=== PATIENT | female | born 1935 | race Caucasian/White ===

== ENCOUNTER 2016-12-11 04:50 | Inpatient (IN) | payer MEDICARE, OTHER ==
[~2016-12-11] VITALS: Ht 167.6 cm; Wt 58.5 kg
--- NOTE | ~2016-12-11 | DS ---
Unit #: [id number] #: [id number] Patient: DANNY DANIELS [id number] [address] [address] [id number] I MR#: [id number] NAME: DANNY DANIELS. ROOM: 465 Age: 81 Sex: F Admission Date: 12/11/2016 : 1935 Discharge Date: Attending Physician: Leana Griffin M.D. Primary Care Physician: Jayden AlcazarRSarah DISCHARGE SUMMARY DISCHARGE DIAGNOSES 1. Acute cholecystitis. 2. Urinary retention, most likely postop pain related. 3. Obstructing stone in the distal common bile duct. 4. Systolic murmur. 5. Hypertension. 6. Chronic obstructive pulmonary disease. 7. Hypercalcemia. 8. Mild hypernatremia. 9. Acute kidney injury with likely chronic kidney disease stage 3. 10. Severe protein malnutrition. 11. Transaminitis, likely from common bile duct stone. CONSULTATION 1. Dr. Salomon. 2. Dr. Toledo. PROCEDURE 1. Patient had ERCP, sphincterotomy with balloon extraction of common bile duct stone and stenting. 2. On December 02, 2016, patient had laparoscopic cholecystectomy. LAB DATA Sodium 133, potassium 4.0, creatinine 1.8, AST 36, ALT 74, alkaline phos. 207, albumin 1.6, WBC 12.5, hemoglobin 8.5, platelets 171. Hemoglobin A1c 5.8. ALLERGIES Sulfa. DISCHARGE MEDICATIONS 1. Albuterol two puffs inhalation q.4 p.r.n. shortness of breath. 2. Flomax 0.4 mg p.o. daily. 3. Loratadine 10 mg p.o. daily. 4. Atorvastatin 80 daily. 5. Zetia 10 mg daily. 6. Verapamil ER 240 mg p.o. daily. 7. MiraLAX 17 g p.o. daily. 8. Oxycodone 5 mg, one to two tablets q.4 p.r.n. pain. 9. Synthroid 112 mcg p.o. daily. HOSPITALIZATION COURSE 81-year-old admitted because of abdominal pain. Unit #: [id number] #: [id number] Patient: DANNY DANIELS Acute cholecystitis with common bile duct stone. Patient was seen by Dr. Salomon. Patient had ERCP and stone extraction and stent placement. Later, patient had laparoscopic cholecystectomy. Currently, pain is better. She is tolerating diet okay. Had bowel movement. Urinary retention, likely from pain. She did receive Ruvalcaba catheter and Flomax. Currently voiding okay. Acute kidney injury, likely prerenal, less likely from obstruction and also she might have likely had chronic kidney disease. Patient received IV fluids. Creatinine is stable. Patient needs BMP in one week time and follow with PCP with results. Hypertension, mildly uncontrolled secondary to holding her medications. Continue with verapamil home medication. Systolic murmur. Patient needs outpatient followup with her PCP for that. Patient will be discharged home with home health. BNP in one week time. Follow with PCP with the results. Discharge time taken is 31 minutes. Discussed with the daughters. Dictated by... Iris Quintanilla/jesse TD: 12/15/2016 13:09 JOB #: [id number] DISCHARGE SUMMARY Page 1 of 1 X Leana Griffin MD X DISCHARGE SUMMARY
--- NOTE | ~2016-12-11 | HP ---
Unit #: [id number] #: [id number] Patient: DANNY DANIELS [id number] [facility] [address] [facility]. [place], [place] [address] [id number] I MR#: [id number] NAME: DANNY DANIELS. ROOM: 226 Age: 81 Sex: F Admission Date: 12/11/2016 : 1935 Attending Physician: James Liu M.D. Primary Care Physician: Brittany Avila A.P.R.N. HISTORY AND PHYSICAL HISTORY OF PRESENT ILLNESS The patient is an 81-year-old woman with a history significant for nausea, vomiting, abdominal pain that started approximately two days ago and symptoms continued to worsen. Severity of pain moderate. No exacerbating factors. Associated with generalized weakness. She was seen at [facility] where a CAT scan of the abdomen demonstrated a 6 mm obstructing stone in the distal common bile duct, gallbladder wall thickening suspicious for acute cholecystitis. The patient was transferred to [facility] for further evaluation and management. PAST MEDICAL HISTORY 1. Hypertension. 2. COPD. PAST SURGICAL HISTORY Bladder surgery and hysterectomy many years ago. SOCIAL HISTORY Quit smoking 12 years ago and does not drink alcohol. ALLERGIES Sulfa drugs. REVIEW OF SYSTEMS Positive for abdominal pain. Positive for nausea. Positive for generalized weakness. Positive for fatigue. The rest of a 12-point review of systems are negative. PHYSICAL EXAMINATION VITAL SIGNS: Temperature 98, heart rate 96, blood pressure 104/47, respirations 14. GENERAL: Elderly woman, looks fatigued. HEENT: Normocephalic and atraumatic. Extraocular muscles intact. NECK: Trachea midline, supple. CARDIAC: Regular rate and rhythm. Systolic murmur. RESPIRATORY: Lungs clear to auscultation bilaterally. ABDOMEN: Acute tenderness in the right upper quadrant. Bowel sounds active, nondistended. EXTREMITIES: No edema. No cyanosis. CENTRAL NERVOUS SYSTEM: No acute focal deficits. DIAGNOSTIC STUDIES IMAGING: CAT scan done at outlying facility demonstrates a 6 mm Unit #: [id number] #: [id number] Patient: DANNY DANIELS obstructing stone in the distal common bile duct. Gallbladder wall thickening suspicious for acute cholecystitis. ASSESSMENT AND PLAN 1. Acute cholecystitis: Plan is to order empiric IV antibiotics. Order IV fluids for hydration. Keep patient NPO. Order surgery consultation. 2. Obstructing stone in the distal common bile duct: Plan is to order a gastroenterology consultation. 3. Systolic murmur: Plan is to order echocardiogram. Cardiology consultation. Dictated by Iris Grehsam TD: 12/11/2016 12:58 JOB #: [id number] HISTORY AND PHYSICAL Page 1 of 1 X X HISTORY AND PHYSICAL
--- NOTE | ~2016-12-11 | OR ---
Unit #: [id number] #: [id number] Patient: DANNY DANIELS [id number] [address] [place], [place] [address] [id number] I MR#: [id number] NAME: DANNY DANIELS. ROOM: [facility] Date of Procedure: 12/11/2016 Admission Date: 12/11/2016 Surgeon: Anthony Salomon M.D. : 1935 Attending Physician: Leana Griffin M.D. Primary Care Physician: Brittany Avila A.P.R.N. OPERATIVE REPORT JOB NOTE: CC: PRIMARY CARE PHYSICIAN. PROCEDURES PERFORMED 1. Esophagogastroduodenoscopy to distal duodenum. 2. Endoscopic retrograde cholangiopancreatography with sphincterotomy. 3. Endoscopic retrograde cholangiopancreatography with balloon extraction of common bile duct stone and 7 x 7 stenting. INDICATIONS FOR PROCEDURE An 81-year-old female, who presented with obstructive jaundice, possible ascending cholangitis with a bilirubin of 4.7 and white count of 43,000, right upper quadrant pain. CT scan shows a possible common bile duct stone, undergoing evaluation with EGD and ERCP. MEDICATIONS Monitored anesthesia. POSTOPERATIVE FINDINGS 1. EGD exam was within normal limits. 2. CBD dilated with a large stone. 3. Sphincterotomy performed at 12 o'clock position for about 6 to 7 mm. 4. Balloon extraction of the large stone was carried out successfully. 5. 7 x 7 CBD stent placed. 6. PD not injected. PLAN 1. LSA to perform laparoscopic cholecystectomy. 2. Follow up in the hospital. DESCRIPTION OF PROCEDURE The patient was explained of the procedure, risks, and benefits along with risks and benefits of anesthesia. Risk of pancreatitis was discussed in detail. She was brought to the endoscopy room and laid in the prone position. EGD was done first. Scope was passed down the mouth into esophagus, stomach, duodenum, and distal duodenum. Findings as described. No biopsies were taken. Gently, I pulled the scope out of the patient's mouth. At this time, we passed a side-viewing ERCP scope down the mouth into esophagus, stomach. Ampulla was visualized, was normal in appearance. After a few attempts, I was able to cannulate the bile duct electively. The ampulla was very tight suggesting stenosis. Common bile duct showed Unit #: [id number] #: [id number] Patient: DANNY DANIELS nice tapering to the ampulla suggestive of periampullary stenosis, also large filling defects seen in the upper part of the common bile duct. At this point, we will perform the sphincterotomy for about 6 to 7 mm at 12 o'clock position. Balloon extraction of the large stone was then carried out. Occlusion cholangiogram done showed no further filling defects. A 7 x 7 stent was then placed across the ampulla under fluoroscopic and endoscopic guidance. PD was not injected on purpose. The scope was then gently withdrawn. The stomach was decompressed. She tolerated the procedure well. No major complications seen. Dictated by... Iris Angel/rosie TD: 12/11/2016 14:49 JOB #: [id number] OPERATIVE REPORT Page 1 of 1 X Anthony Salomon MD X PROCEDURE OPERATIVE NOTE
--- NOTE | ~2016-12-11 | CR84 ---
[facility] RADIOLOGY TEXT RESULTS PATIENT: DANNY DANIELS LOCATION: [place] [address] : [birth year] UNIT #: [id number] AGE: [address]: Leana Griffin MD SEX: F ORDER DR: [id number] [facility] [address] [facility]. [place], [place] [address] [id number] I MR#: [id number] Acc #: [id number] NAME: DANNY DANIELS. : 1935 SEX: F STUDY DATE/TIME: 12/11/2016 12:35 UNIT: C2A ROOM: 226 STUDY DESCRIPTION: CR ERCP Biliary and Pancr SI Attending Physician: Leana Griffin M.D. Ordering Physician: Anthony Salomon M.D. Primary Care Physician: Brittany Avila A.P.R.N. MEDICAL IMAGING REPORT This report is preliminary unless electronic signature is present EXAM ERCP HISTORY Obstructive jaundice. Common bile duct stone. Fluoroscopy time: 2 minutes 7 seconds. FINDINGS Five fluoroscopic spot films were obtained during the ERCP procedure performed by the attending endoscopist. Injection of the common bile duct demonstrates extrahepatic biliary ductal dilatation, with the common bile duct measuring up to approximately 12 mm. Filling defect in the common bile duct corresponds to stone noted earlier on CT 12/11/2016. Balloon sweep of the extrahepatic ducts was performed, with stone removal from the common bile duct. The central intrahepatic ducts were only partly opacified with rpyqsnjrwn-wa-mqkw dilatation. Pancreatic duct was not injected. Biliary stent was placed at the conclusion of the procedure. IMPRESSION 1. Stone in the common bile duct corresponds to finding on CT earlier on 12/11/2016. 2. Mild intrahepatic biliary ductal dilatation and aqlp-ka-gufhedfn extrahepatic biliary ductal dilatation. 3. Biliary stent was placed at the conclusion of the procedure. 4. Pancreatic duct was not injected. Dictated by... Cale Sagastume M.D. THIS IS AN ELECTRONICALLY VERIFIED REPORT Cale Sagastume M.D. at 12/12/2016 10:31 PM [facility] RADIOLOGY TEXT RESULTS PATIENT: DANNY DANIELS LOCATION: [facility] 465-01 : 35 UNIT #: [id number] AGE: [address]: Leana Griffin MD SEX: F ORDER DR: FARRUKH/roseann TD: 12/12/2016 12:57 JOB #: [id number] MEDICAL IMAGING REPORT Page 1 of 1 COPY
--- NOTE | ~2016-12-11 | CO ---
Unit #: [id number] #: [id number] Patient: DANNY JETT [id number] [address] [place], [place] [address] [id number] I MR#: [id number] NAME: DANNY JETT. ROOM: [facility] Age: 81 Sex: F Admission Date: 12/11/2016 : 1935 Attending Physician: Leana Griffin M.D. Primary Care Physician: Brittany Avila A.P.R.N. Consultation Date: 12/11/2016 CONSULTATION REPORT REFERRING PHYSICIAN Dr. Damir Marie. REASON FOR CONSULTATION Obstructive jaundice common bile duct stone. HISTORY OF PRESENT ILLNESS Ms. Jett is an 81-year-old pleasant lady, who presented with nausea, vomiting, significant right upper quadrant pain. CT scan shows possible common bile duct stone, acute cholecystitis. Her LFTs suggest obstructive jaundice also. She has had some chills, but no fever. She has had generalized weakness. She has not had any similar symptoms in the past. PAST MEDICAL HISTORY Significant for COPD, hypertension. She is status post hysterectomy. SOCIAL HISTORY Nonsmoker, nonalcoholic. ALLERGIES Sulfa. REVIEW OF SYSTEMS Complete 10-point review of systems was done, which is unremarkable other than as mentioned above. PHYSICAL EXAMINATION VITAL SIGNS: Stable, temperature 98, pulse 96, respirations 14, and blood pressure of 104/47. HEENT: Pupils equal and reactive. Sclerae anicteric. Oral mucosa moist. NECK: No JVD. No lymphadenopathy. CHEST: A few scattered rhonchi. CARDIOVASCULAR: Regular rate and rhythm. No murmurs. GI: Abdomen is significantly tender in the right upper quadrant. Bowel sounds present. No organomegaly or ascites. EXTREMITIES: Without clubbing, cyanosis, or edema. NEUROLOGIC: Intact. SKIN: Warm and dry. DIAGNOSTIC STUDIES IMAGING STUDIES: CT scan done at [facility] shows a 6 mm stone blocking the distal common bile duct. Gallbladder was suspicious for acute cholecystitis. Unit #: [id number] #: [id number] Patient: DANNY JETT ASSESSMENT AND PLAN The patient with obstructive jaundice from common bile duct stones very significantly elevated white count suggest possible ascending cholangitis as well as acute cholecystitis based on CT scan findings. She will need an ERCP urgently. We will start on broad-spectrum antibiotics, IV fluids, and pain medications at the same time. Further recommendations to follow. Thank you, Dr. Marie, for this interesting consult. We will follow along. Dictated by... Iris Angel/rosie TD: 12/12/2016 12:39 JOB #: [id number] CONSULTATION REPORT Page 1 of 1 X Anthony Salomon MD X CONSULTATION REPORT
--- NOTE | ~2016-12-11 | OR ---
Unit #: [id number] #: [id number] Patient: DANNY DANIELS [id number] [address] [place], [place] [address] [id number] I MR#: [id number] NAME: DANNY DANIELS. ROOM: [facility] Date of Procedure: 12/12/2016 Admission Date: 12/11/2016 Surgeon: Pratik Vazquez M.D. : 1935 Attending Physician: Leana Griffin M.D. Primary Care Physician: Brittany Avila A.P.R.N. OPERATIVE REPORT PREOPERATIVE DIAGNOSIS Cholecystitis. POSTOPERATIVE DIAGNOSIS Cholecystitis. PROCEDURE PERFORMED Laparoscopic cholecystectomy. PASSPORT APPLICATION EXAMINER Tay Corona M.D. ANESTHESIA General anesthesia. ESTIMATED BLOOD LOSS 100 mL. IV FLUIDS 1 L crystalloid. COMPLICATIONS None. INDICATIONS The patient is an 81-year-old, who presents with acute cholecystitis. DESCRIPTION OF PROCEDURE The patient was taken to the operating theater and placed in supine position. General anesthesia was induced. The abdomen was prepped and draped. A 5-mm Optiview trocar was placed in the right upper quadrant without difficulty. The abdomen was insufflated to 15 mmHg with CO2. Under direct vision, I placed a subxiphoid 10 mm, right lateral 5 mm, umbilical 5 mm. General inspection of the abdomen revealed acute cholecystitis. The patient's gallbladder was retracted up over the liver. I dissected neck of the gallbladder and identified the cystic duct. Its junction with the gallbladder was confirmed. It was thus skeletonized, doubly hemoclipped, and divided. The cystic artery laid immediately posterior. This was skeletonized, doubly hemoclipped, and divided. The gallbladder was removed from gallbladder bed with Bovie electrocautery. I irrigated thoroughly with normal saline with good hemostasis. I placed a Se-Rizvi drain in the bed of the gallbladder, brought this out Unit #: [id number] #: [id number] Patient: DANNY DANIELS through the right 5 mm port sites. This was secured in place with 2-0 silk sutures. All fluids were aspirated dry. I then removed the ports under direct vision and closed the fascia with 0 Vicryl and skin with 4-0 Vicryl. The patient tolerated the procedure well and sent to recovery room in good condition. Dictated by... Iris Tavares/rosie TD: 12/12/2016 16:53 JOB #: [id number] OPERATIVE REPORT Page 1 of 1 X Pratik Vazquez MD X PROCEDURE OPERATIVE NOTE
--- NOTE | ~2016-12-11 | CO ---
Unit #: [id number] #: [id number] Patient: DANNY JETT [id number] [address] [place], [place] [address] [id number] I MR#: [id number] NAME: DANNY JETT. ROOM: 226 Age: 81 Sex: F Admission Date: 12/11/2016 : 1935 Attending Physician: Leana Griffin M.D. Primary Care Physician: Brittany Avila A.P.R.N. Consultation Date: 12/12/2016 CONSULTATION REPORT HISTORY OF PRESENT ILLNESS Ms. Jett is an 81-year-old white female with cholangitis and acute cholecystitis on CT scanning. She underwent urgent ERCP because of obstructive jaundice and noted common bile duct stone. This showed a common duct stone which was extracted per the ERCP. Presently, she feels slightly better, but she still has 1 to 2+ right upper quadrant tenderness. We are awaiting medical clearance for laparoscopic cholecystectomy. PHYSICAL EXAMINATION GENERAL: Cooperative and alert white female. HEENT: Clear. There is slight jaundice in her eyes. CHEST: Clear to auscultation and percussion. CARDIAC: Rhythm is regular. ABDOMEN: Soft, 1 to 2+ midepigastric right upper quadrant tenderness. EXTREMITIES: Full range of motion. 1 to 2+ peripheral pulses. No edema. IMPRESSION Acute cholecystitis and cholangitis, status post endoscopic retrograde cholangiopancreatography and removal of common bile duct stone. PLAN Medical clearance and then laparoscopic cholecystectomy. Risks have been explained to the patient. She understands. Dictated by... Iris Sarmiento/rosie TD: 12/12/2016 11:10 JOB #: [id number] CONSULTATION REPORT Page 1 of 1 X Jose Toledo MD X CONSULTATION REPORT
[2016-12-11 11:41] LABS: HEMATOCRIT 32.9 % (35.0-45.0); LYMPHOCYTE# 0.9 X10e3 (1.0-3.5); LYMPHOCYTE% 2.2 % (17.0-45.0); MEAN CELL VOLUME 98.2 FL (83-96); MEAN CORPUSCULAR HEMOGLOBIN 32.9 PG (28-34); MEAN CORPUSCULAR HGB CONC 33.5 g/dL (30-36); MEAN PLATELET VOLUME 7.5 FL (6.5-11.5); MONOCYTE# 1.5 X10e3 (0-1.0); MONOCYTE% 3.4 % (3.0-12.0); NEUTROPHIL# 39.9 X10e3 (1.5-7.1); NEUTROPHIL% 94.4 % (40-75); PLATELET COUNT 228 X10e3 (140-420); RED BLOOD COUNT 3.35 X10e (3.90-5.30); RED CELL DISTRIBUTION WIDTH 13.6 % (11.0-15.5); WHITE BLOOD COUNT 42.3 X10e3 (4.0-10.5)
[2016-12-11 11:42] LABS: DIFF IND YES
[2016-12-11 11:45] LABS: INR 1.1
[2016-12-11 12:11] LABS: ALBUMIN SERUM 2.6 g/dL (3.5-5.0); BILIRUBIN,TOTAL 4.2 mg/dL (0.2-2.0); BUN/CREATININE RATIO 13.63; CALCIUM SERUM 7.8 mg/dL (8.4-10.2); CREATININE SERUM 2.2 mg/dL (0.6-1.4); GLOM FILT RATE Estimated 20.4 mL/min (>60); PLATELET ESTIMATE NORMAL (NORMAL); POTASSIUM 3.9 mmol/L (3.5-5.1); PROTEIN TOTAL SERUM 6.1 g/dL (6.0-8.3)
[2016-12-11] MEDS ORDERED: ALLERGY10 M1 PO (13:02)
[2016-12-11] MEDS ORDERED: LIPITOR80 MG PO (13:02)
[2016-12-11] MEDS ORDERED: ZETIA PO (13:02)
[2016-12-11] MEDS ORDERED: VERAPAMIL ER240 M1 PO (13:03)
[2016-12-11] MEDS ORDERED: ALBUTEROL17 GM INH (13:03)
[2016-12-11] MEDS ORDERED: SYNTHROID112 MCG PO (13:03)
[2016-12-12 07:22] LABS: BASOPHIL# 0.1 X10e3 (0-0.3); BASOPHIL% 0.2 % (0-2.5); HEMATOCRIT 30.2 % (35.0-45.0); HEMOGLOBIN 10.2 gm/dL (12.0-16.0); LYMPHOCYTE# 1.3 X10e3 (1.0-3.5); LYMPHOCYTE% 4.7 % (17.0-45.0); MEAN CELL VOLUME 97.7 FL (83-96); MEAN CORPUSCULAR HEMOGLOBIN 32.9 PG (28-34); MEAN CORPUSCULAR HGB CONC 33.6 g/dL (30-36); MEAN PLATELET VOLUME 8.1 FL (6.5-11.5); MONOCYTE% 3.7 % (3.0-12.0); NEUTROPHIL# 24.9 X10e3 (1.5-7.1); NEUTROPHIL% 91.4 % (40-75); PLATELET COUNT 191 X10e3 (140-420); RED BLOOD COUNT 3.09 X10e (3.90-5.30); RED CELL DISTRIBUTION WIDTH 13.9 % (11.0-15.5); WHITE BLOOD COUNT 27.3 X10e3 (4.0-10.5)
[2016-12-12 07:36] LABS: DIFF IND NO
[2016-12-12 07:41] LABS: ALBUMIN SERUM 2.1 g/dL (3.5-5.0); BILIRUBIN,TOTAL 3.4 mg/dL (0.2-2.0); BUN/CREATININE RATIO 15.78; CALCIUM SERUM 7.6 mg/dL (8.4-10.2); CREATININE SERUM 1.9 mg/dL (0.6-1.4); GLOM FILT RATE Estimated 24.3 mL/min (>60); POTASSIUM 3.9 mmol/L (3.5-5.1); PROTEIN TOTAL SERUM 4.8 g/dL (6.0-8.3)
[2016-12-12] MEDS ORDERED: ZESTRIL40 MG PO (10:10)
[2016-12-12 18:17] LABS: HEMATOCRIT 33.6 % (35.0-45.0); HEMOGLOBIN 11.2 gm/dL (12.0-16.0)
[2016-12-13 04:07] LABS: BASOPHIL# 0.1 X10e3 (0-0.3); BASOPHIL% 0.4 % (0-2.5); HEMATOCRIT 29.1 % (35.0-45.0); HEMOGLOBIN 9.5 gm/dL (12.0-16.0); LYMPHOCYTE# 0.9 X10e3 (1.0-3.5); LYMPHOCYTE% 3.8 % (17.0-45.0); MEAN CELL VOLUME 99.5 FL (83-96); MEAN CORPUSCULAR HEMOGLOBIN 32.3 PG (28-34); MEAN CORPUSCULAR HGB CONC 32.5 g/dL (30-36); MEAN PLATELET VOLUME 8.6 FL (6.5-11.5); MONOCYTE# 0.7 X10e3 (0-1.0); NEUTROPHIL# 22.6 X10e3 (1.5-7.1); NEUTROPHIL% 92.8 % (40-75); PLATELET COUNT 188 X10e3 (140-420); RED BLOOD COUNT 2.93 X10e (3.90-5.30); RED CELL DISTRIBUTION WIDTH 14.1 % (11.0-15.5); WHITE BLOOD COUNT 24.4 X10e3 (4.0-10.5)
[2016-12-13 04:09] LABS: DIFF IND NO
[2016-12-13 04:30] LABS: ALBUMIN SERUM 1.9 g/dL (3.5-5.0); BILIRUBIN,TOTAL 2.9 mg/dL (0.2-2.0); BUN/CREATININE RATIO 16.11; CALCIUM SERUM 7.6 mg/dL (8.4-10.2); CREATININE SERUM 1.8 mg/dL (0.6-1.4); GLOM FILT RATE Estimated 25.9 mL/min (>60); POTASSIUM 4.1 mmol/L (3.5-5.1); PROTEIN TOTAL SERUM 4.6 g/dL (6.0-8.3)
[2016-12-14 03:29] LABS: BASOPHIL# 0.1 X10e3 (0-0.3); BASOPHIL% 0.4 % (0-2.5); EOSINOPHIL# 0.1 X10e3 (0-0.7); EOSINOPHIL% 0.5 % (0.0-7.0); HEMATOCRIT 26.5 % (35.0-45.0); HEMOGLOBIN 8.8 gm/dL (12.0-16.0); LYMPHOCYTE# 1.4 X10e3 (1.0-3.5); LYMPHOCYTE% 9.1 % (17.0-45.0); MEAN CELL VOLUME 98.7 FL (83-96); MEAN CORPUSCULAR HEMOGLOBIN 32.8 PG (28-34); MEAN CORPUSCULAR HGB CONC 33.2 g/dL (30-36); MEAN PLATELET VOLUME 8.4 FL (6.5-11.5); MONOCYTE# 1.1 X10e3 (0-1.0); MONOCYTE% 7.3 % (3.0-12.0); NEUTROPHIL# 12.8 X10e3 (1.5-7.1); NEUTROPHIL% 82.7 % (40-75); PLATELET COUNT 163 X10e3 (140-420); RED BLOOD COUNT 2.69 X10e (3.90-5.30); WHITE BLOOD COUNT 15.5 X10e3 (4.0-10.5)
[2016-12-14 03:36] LABS: DIFF IND NO
[2016-12-14 03:44] LABS: ALBUMIN SERUM 1.7 g/dL (3.5-5.0); BILIRUBIN,TOTAL 2.4 mg/dL (0.2-2.0); BUN/CREATININE RATIO 15.62; CALCIUM SERUM 7.3 mg/dL (8.4-10.2); CREATININE SERUM 1.6 mg/dL (0.6-1.4); GLOM FILT RATE Estimated 29.9 mL/min (>60); MAGNESIUM 1.6 mg/dL (1.6-3.0); PHOSPHOROUS 2.5 mg/dL (2.5-4.6); POTASSIUM 4.3 mmol/L (3.5-5.1); PROTEIN TOTAL SERUM 4.4 g/dL (6.0-8.3)
[2016-12-15 03:07] LABS: HEMATOCRIT 25.6 % (35.0-45.0); HEMOGLOBIN 8.5 gm/dL (12.0-16.0); MEAN CELL VOLUME 97.9 FL (83-96); MEAN CORPUSCULAR HEMOGLOBIN 32.6 PG (28-34); MEAN CORPUSCULAR HGB CONC 33.3 g/dL (30-36); MEAN PLATELET VOLUME 8.2 FL (6.5-11.5); RED BLOOD COUNT 2.61 X10e (3.90-5.30); RED CELL DISTRIBUTION WIDTH 14.1 % (11.0-15.5); WHITE BLOOD COUNT 12.5 X10e3 (4.0-10.5)
[2016-12-15 03:48] LABS: ALBUMIN SERUM 1.6 g/dL (3.5-5.0); BILIRUBIN,TOTAL 1.6 mg/dL (0.2-2.0); BUN/CREATININE RATIO 13.88; CALCIUM SERUM 7.5 mg/dL (8.4-10.2); CREATININE SERUM 1.8 mg/dL (0.6-1.4); GLOM FILT RATE Estimated 25.9 mL/min (>60); PROTEIN TOTAL SERUM 4.4 g/dL (6.0-8.3)
[2016-12-15] MEDS ORDERED: FLOMAX0.4 M1 PO (15:18)
[2016-12-15] MEDS ORDERED: OXYCODONE HCL5 M1 PO (15:26)
== END 2016-12-15 16:00 | disposition home health service (06) | DRG 417 ==
LOC: C2A 04:50 → UNDOADMIN 04:50 → C2A 11:06 → C4C 11:06 → C2A 12-12 07:41 → C4C 12-12 17:12
PROVIDERS: Internal Medicine; Specialist; Surgery
PROC: 0F798DZ Dilation of Common Bile Duct with Intraluminal Device, Via Natural or Artificial Opening Endoscopic (ICD-10-PCS; 2016-12-11)
PROC: 0DJ08ZZ Inspection of Upper Intestinal Tract, Via Natural or Artificial Opening Endoscopic (ICD-10-PCS; principal; 2016-12-11 14:00)
PROC: 0FC98ZZ Extirpation of Matter from Common Bile Duct, Via Natural or Artificial Opening Endoscopic (ICD-10-PCS; 2016-12-11 14:00)
PROC: 0FT44ZZ Resection of Gallbladder, Percutaneous Endoscopic Approach (ICD-10-PCS; 2016-12-12)
DX: K80.43 Calculus of bile duct with acute cholecystitis with obstruction (principal); E43 Unspecified severe protein-calorie malnutrition; E87.0 Hyperosmolality and hypernatremia; N17.9 Acute kidney failure, unspecified; E87.2 Acidosis; J44.9 Chronic obstructive pulmonary disease, unspecified; I48.91 Unspecified atrial fibrillation; R33.9 Retention of urine, unspecified; R01.1 Cardiac murmur, unspecified; I12.9 Hypertensive chronic kidney disease with stage 1 through stage 4 chronic kidney disease, or unspecified chronic kidney disease; N18.3 Chronic kidney disease, stage 3 (moderate); E83.52 Hypercalcemia; R74.0 Nonspecific elevation of levels of transaminase and lactic acid dehydrogenase [LDH]; Z88.2 Allergy status to sulfonamides; E03.9 Hypothyroidism, unspecified; Z87.891 Personal history of nicotine dependence; Z90.710 Acquired absence of both cervix and uterus; D50.9 Iron deficiency anemia, unspecified
CPT/HCPCS: 74330; 80053; 82150; 83036; 83690; 83735; 84100; 85014; 85018; 85025; 85027; 85610; 88304; 94640; 94664; 94760; 97110; 97116; 97161; 97166; 97535; G8978-GP; G8979-GP; G8987-GO; G8988-GO; G8989-GO; J0131; J0330; J1610; J2250; J2370; J2405; J2543; J2710; J3010